=== PATIENT | female | born 1950 | race Caucasian/White ===

== ENCOUNTER 2025-02-04 20:05 | Inpatient (IN) | payer OTHER, SELFPAY ==
[2025-02-04 15:23] VITALS: BP 160/88
[2025-02-04 17:54] VITALS: BP 139/84
[2025-02-04 18:00] VITALS: BP 138/82
--- NOTE | 2025-02-04 18:37 | ED.MUSCINJ ---
HPI-Injury
General
Chief Complaint: Musculo-Skeletal Complaint
Source: patient and spouse
Exam Limitations: none
Time Seen by Provider: 02/04/25 18:04
History of Present Illness-Injury
Is this injury a work related problem?: No
Is pt an associate of [facility]?: No
Initial Injury comments:
74-year-old female left hip pain status post left hip replacement with I believe [facility] orthopedics outpatient center 2 weeks ago, please she fell out of bed this morning she think she hit her right side though she is not certain if she went
to PT PT today got in the car heard a pop could not move her left hip, her surgery was Dr. Sung no head strike she has been taking aspirin 81 mg twice a day
Past History
Past History
ED Past Surgical History: Orthopedic
Social History
Tobacco: Non-smoker
Alcohol: None
Drug: None
Personal:
Living: with family
Employment: Retired
Review of Systems
Review of Systems
All Other Systems: Not applicable
Musculoskeletal: Reports joint pain
Phy Exam
Physical Exam
Physical Exam:
Physical Exam
General: no apparent distress, not acutely ill
Neck: No tongue bite no signs of head or neck
Heart: s1/s2 regular rate and rhythm, no murmur. equal radial pulses.
Lungs: no acute respiratory distress. clear bilaterally
Abdomen: Nontender
Neuro: alert and oriented. no focal neurological deficits
Skin: no rash
Psychiatric: well kept. interactive and cooperative
Extremities: Lower extremities equal length, no pain with range of motion of the right hip exquisite pain with range of motion of the left hip
Injury Course
Orders/Labs/Results
Orders:
Orders
02/04/25 15:26
Hip, Left 2-3 Views [CR Hip - LT w/wo Pel 2-3 Vw*] Urgent
Comment:
Reason For Exam: pain
Include a pelvis x-ray?: Yes
02/04/25 18:47
Type+Screen Urgent
Complete Blood Count/With Diff Urgent
Comprehensive Metabolic Panel Urgent
HYDROmorphone [Dilaudid] 1 mg IV NOW STA
02/04/25 18:48
Cardiac Monitoring- Treatment ONCE
02/04/25 19:13
ORTHOPEDIC CONSULT Routine
Consulting Provider: Buck Sung
Was physician already notified: Yes
MDM/Problems Addressed
Differential Diagnosis Includes:
Fracture dislocation contusion strain
MDM/Problems Addressed:
Left hip pain
*Radiology
Radiology exam reviewed: preliminary read by ED provider
*Pulse Oximetry
SaO2: 100
Oxygen Mode of Delivery: Room air
Patient hypoxic: no
*Critical Care Note
Total Time (30-74mins, 75-104mins- exclusive of procedures): Not Applicable
Update Note
Update Note:
Suspect periprosthetic hip fracture reviewed with her treating surgeon he concurs we will be admitted to the medical service operative repair over the weekend after some special equipment is ordered
ED Attending Note
-
Portions of this chart may have been created with voice recognition software.� Occasional wrong word or��sound alike� substitutions may have occurred due to the inherent limitations of voice recognition software.
Discharge Plan
Departure
Patient Disposition: Admit
Date of Disposition: 02/04/25
Time of Disposition: 19:16
Admit to: Med/Surg
Presentation/result/management discussed w/ accepting MD/DO: Hospitalist
Patient with high blood pressure during this ER visit?: No
Condition: Fair
Discharge Problem:
Kat-prosthetic fracture around prosthetic hip
Interventions
Interventions:
*Risk Screen - Suicide Last Done: 02/04/25 15:23
*General Assessment Last Done: 02/04/25 15:23
*Neglect/Abuse Screening Last Done: 02/04/25 15:23
*ED COVID-19 Vaccine History Last Done: 02/04/25 15:23
ED-Musculoskeletal Assessment Last Done: 02/04/25 17:57
Discharge Date and Time
Print Language: MACANESE
[2025-02-04] MEDS: DILAUDID 1 MG IV (18:58)
--- NOTE | 2025-02-04 19:27 | HPS.HSE ---
Family Physician
-
Family Physician:
Chief Complaint
-
Left hip pain
History of Present Illness
Patient is a 71-year-old female past medical history of hypothyroid and depression who presents to the emergency department following a mechanical fall and injury to the left hip.
Patient is recently status post left total hip arthroplasty 2 weeks ago. She has been doing well on prophylactic aspirin 162 mg daily as well as intermittent doses of Tylenol. She fell from bed in the morning and then went to PT. At PT she had a
cracking sound and developed severe left hip pain. She felt there was some injury day and was brought to the Emergency Department for evaluation. Here in the Emergency Department she was found to have a periprosthetic fracture.
Blood pressure was stable at 138/80 with a pulse of 80 and she is satting 99% on room air. Temperature was 98.7. X-ray shows the left periprosthetic hip fracture. Labs are pending.
Medical History
Past Medical History
Past Medical History: Reports Hypothyroidism and Psychiatric
Past Surgical History: Reports Orthopedic (Left total hip arthroplasty)
Social History
Tobacco: Non-smoker
Alcohol: None
Drug: None
Personal:
Living: With Family
Employment: Retired
Family History
Family History: Not pertinent
Allergies / Home Medications
Allergies reflects when Allergies were last updated in [facility].
Home Medications with original date entered in [facility]
Allergy/Medication List:
Allergies
Allergy/AdvReac Type Severity Reaction Status Date / Time
Penicillins Allergy Unknown Verified 02/04/25 15:26
Home Medications
fluoxetine 10 mg capsule 10 mg PO DAILY 02/04/25
fluoxetine 40 mg capsule 40 mg PO DAILY 02/04/25
levothyroxine 75 mcg tablet (Synthroid) 75 mcg PO DAILY 02/04/25
Review of Systems
-
Constitutional: Reports No Symptoms
EENT: Reports No Symptoms
Respiratory: Reports No Symptoms
Cardiac: Reports No Symptoms
Abdomen/GI: Reports No Symptoms
: Reports No Symptoms
Musculoskeletal: Reports Joint Pain
Skin: Reports No Symptoms
Neurological: Reports No Symptoms
Endocrine: Reports No Symptoms
Hematologic/Lymphatic: Reports No Symptoms
Psych: Reports No Symptoms
Physical Exam
Vital Signs
Vital Signs
Temp Pulse Resp BP Pulse Ox
98.7 F 80 20 138/82 99
02/04/25 15:23 02/04/25 19:15 02/04/25 19:15 02/04/25 18:00 02/04/25 19:15
Physical Exam
General: Well Developed, Well Nourished and No Apparent Distress
HEENT: NormoCephalic, Moist mucous membranes and Atraumatic
Respiratory: Clear
Cardiac: S1/S2 and Regular Rhythm; No Murmur or Rub
GI: Soft, Non Tender, Non Distended and Normal Bowel Sounds; No Organomegaly
Rectal: Deferred by Provider
Musculoskeletal: No Clubbing, No Cyanosis and No Edema
Skin: No Rash
Neuro: Nonfocal/grossly intact
Psych: Calm
Data Reviewed
-
Diagnostic Radiology: Image Personally Visualized and interpreted
Lab Data: Labs Reviewed by me
Impression/Plan
-
IMPRESSION:
Traumatic left total arthroplasty periprosthetic fracture
PLAN:
Hip Fracture
- admit to med/surg
- regular diet for now
- pain control
- no weight bearing for now
- bladder scan fracture protocol
- gentle hydration overnight
- plan for OR on saturday as parts are pending
- Ortho consulted and aware
- no thinners, SCDs
Code status - Full code
[2025-02-04 20:00] VITALS: BP 137/76
[2025-02-04 20:07] LABS: Hematocrit 29.5 % (37.0-47.0); Hemoglobin 10.1 g/dL (12.0-16.0); Mean Corp Hgb Conc. 34.2 g/dL (33.0-37.0); Mean Corpuscular Volume 89.1 fL (81.0-99.0); Nucleated Red Blood Cells % 0 %; Platelet Count 157 10^3/uL (130-400); Red Cell Dist. Width 14.3 % (11.5-14.5)
[2025-02-04 20:17] LABS: ALT (SGPT) 16 U/L (0-35); AST (SGOT) 19 U/L (14-36); Albumin 3.8 g/dl (3.5-5.0); Alkaline Phosphatase 109 U/L (38-126); Blood Urea Nitrogen 19 mg/dl (7-17); Calcium 9.1 mg/dl (8.4-10.2); Carbon Dioxide 23 mmol/L (22-30); Chloride 106 mmol/L (98-107); Glucose 121 mg/dl (70-99); Potassium 4.2 mmol/L (3.5-5.1); Sodium 136 mmol/L (135-145); Total Protein 6.2 g/dl (6.3-8.2); eGFR > 60.00
[2025-02-04] MEDS: D5LR 1000 IV (21:07)
[2025-02-04] MEDS: COLACE 100 MG PO (21:07)
[2025-02-04] MEDS: SENOKOT 17.2 MG PO (21:08)
[2025-02-04] MEDS: TYLENOL 650 MG PO (21:09)
[2025-02-04 21:17] VITALS: BP 134/80; BMI 32.3
--- NOTE | 2025-02-04 22:00 | PTCARENOTE ---
20:30 pt rec'vd from ER, vs stable, denies pain only with movement. static overlay in place, oriented to unit .
[2025-02-04 23:15] VITALS: BP 123/63
[2025-02-05] MEDS: TYLENOL 650 MG PO ×6 (00:31→20:18)
[2025-02-05] MEDS: SYNTHROID 75 MCG PO (05:53)
[2025-02-05] MEDS: DILAUDID 0.25 MG IV ×3 (05:53→18:24)
[2025-02-05 07:50] VITALS: BP 120/90
[2025-02-05] MEDS: PROZAC 40 MG PO (08:45)
[2025-02-05] MEDS: SENOKOT 17.2 MG PO ×2 (08:45→20:18)
[2025-02-05] MEDS: PROZAC 10 MG PO (08:45)
[2025-02-05] MEDS: COLACE 100 MG PO ×2 (08:46→20:18)
--- NOTE | 2025-02-05 09:06 | CON.ORTHO ---
Consultation
-
Date/Time Consultation Requested: 02/04/2025; time unknown
Date/Time Consultation Performed: 02/05/2025; 0700
Requesting Provider: unknown
Performing Provider: Gaby Barnett PA-C
Reason for Consultation: Left periprosthetic femur fracture
Consultation - Orthopedics
History
Ms. Moody is a 74 yo female with PMH of hypothyroid and depression seen today for her left hip. She underwent a left total hip arthroplasty 2 weeks ago under the direction of Dr. Sung. I saw her for her 2 week post-op visit on 02/03 at which
point she was doing quite well. She reports she accidently rolled out of bed yesterday and landed on her right side. She denies any pain immediately following this incident, and was able to get up and move around without difficulty. She attended
physical therapy yesterday without any issues, but when she was getting into her car to go home yesterday, she felt a crack and immediate onset of pain in the hip. She presented to ED where x-rays revealed a displaced periprosthetic femur
fracture. She is resting comfortably in bed this morning, but wells endorse pain with any movement of the left leg. She denies pain elsewhere.
Allergies / Home Medications
Allergy/AdvReac Type Severity Reaction Status Date / Time
Penicillins Allergy Unknown Verified 02/04/25 15:26
�Medication �Instructions �Recorded
fluoxetine 10 mg capsule 10 mg PO DAILY 02/04/25
fluoxetine 40 mg capsule 40 mg PO DAILY 02/04/25
levothyroxine 75 mcg tablet 75 mcg PO DAILY 02/04/25
(Synthroid)
Vital Signs / Lab Results
Temp Pulse Resp BP Pulse Ox
98.2 F 85 18 120/90 100
02/05/25 07:50 02/05/25 07:50 02/05/25 07:50 02/05/25 07:50 02/05/25 07:50
02/04/25 19:52
02/04/25 19:52
XR Left Hip Findings/impression:
There is an oblique cortical fracture along the medial margin of the proximal femur, situated approximately midshaft level of the prosthetic femoral stem.
Also noted is prominent femoral stem subsidence, with downward/distal migration of the femoral component within the femur. Recommend direct comparison to the postoperative images, which are not available at this facility.
Incidental note is made of advanced right hip arthritis.
Directed exam of the left lower extremity reveals healing surgical incision without signs of erythema, drainage or dehiscence. Expected post-operative edema and ecchymosis. Tenderness to palpation about the anterior hip. ROM deferred secondary to
known fracture. Positive log roll. Thigh soft and compressible. Calf soft and nontender. Patient able to wiggle toes, plantar and dorsiflex ankle. Neurovascularly intact distally.
Assessment / Plan
Left periprosthetic femur fracture; 2 weeks s/p left FLASH
--Unfortunately, Pat sustained a left periprosthetic femur fracture. This will require open reduction internal fixation. The risks, benefits, alternatives, recovery process and potential complications were discussed in detail. She verbalized
understanding and would like to proceed with surgical intervention. This will be planned for Wednesday 02/07 under the direction of Dr. Sung. Surgical and blood consent are signed and on patient chart.
--NPO after mn for OR 02/07.
--NWB to LLE until surgery.
--Pain control prn. Ice prn for pain and edema control.
--T+S completed.
--Hgb 10.1 today. Continue to monitor and trend.
--Orthopedics will continue to follow along.
--- NOTE | 2025-02-05 10:03 | CM ---
CM following re: discharge planning.
Reviewed pt's chart , met with pt and pt's at bedside.
Pt is a 74 year old female, admitted with primary dx of Hip fx. per Ortho, OR on 02/07/25.
Pt reports she lives with 2SH, 2 steps to enter, has 3 supportive children. Pt described herself as independent in all areas [employer]. No DME, VN or SNF history.
Pt stated she feels that after surgery she will need to go to a SNF for a short term rehab and she preferred following SNFs: [facility] - number one choice and alternative - [facility]. CM made a referral to above SNFs for a
potential admission early next week.
PT and OT will evaluate the pt after the surgery to determine a level of care at discharge.
PCP: Elvira Santiago
Pharmacy: [facility].
D/C plan: Most likely preferred SNF: [facility] or [facility].
CM will follow with discharge plan updates as hospitalization progresses
--- NOTE | 2025-02-05 10:55 | W.PN.HOSP.TC ---
Today's Communication/Plan
-
Pain control. Orthopedic consult
Assessment / Plan
Assessment / Plan
Physical exam:
General: Discomfort due to pain in hip
HEENT: Normocephalic, Atraumatic and Moist Mucous Membranes
Respiratory: Clear to Auscultation; Negative Wheezes, Rales or Rhonchi
Cardiac: Regular Rhythm and S1/S2
GI: Soft, Nontender and Nondistended
Musculoskeletal: Left hip postop findings with mild edema and ecchymosis and tenderness, no erythema. No Clubbing, No Cyanosis and No Edema
Neuro: Awake, Alert and Oriented
Psych: Calm
A/P:
Left periprosthetic femur fracture:
Patient with recent FLASH 2 weeks ago
Pain control and bowel regimen
Orthopedic consult appreciated-plan for ORIF on 02/07
No weightbearing until surgery
Obtain twelve-lead EKG preop
Discussed with family at bedside today
Anemia:
Continue to monitor hemoglobin closely
Hemoglobin 10.1 today
Leukocytosis:
Likely reactive
Monitor trend
Hypothyroidism:
Continue levothyroxine 75 mg p.o. daily
Depression:
Continue fluoxetine 50 mg daily
DVT prophylaxis:
SCDs
CODE STATUS:
Full code
Time spent 35 minutes
Anticipated Discharge: > 48 hours
Subjective/Interval History
-
Date of Service: February 05, 2025
Patient has pain in her left hip when moving. No chest pain or shortness of breath.
Objective Data
-
Vital Signs:
Vital Signs
Temp Pulse Resp BP Pulse Ox
98.2 F 85 18 120/90 100
02/05/25 07:50 02/05/25 07:50 02/05/25 07:50 02/05/25 07:50 02/05/25 07:50
I&O
02/04/25 02/05/25 02/06/25
06:59 06:59 06:59
Intake Total 1360 / 1360
Balance 1360 / 1360
[2025-02-05 11:30] VITALS: BP 93/40
[2025-02-05 23:16] VITALS: BP 121/77
[2025-02-06] MEDS: TYLENOL PO (01:04)
[2025-02-06] MEDS: TYLENOL 650 MG PO ×6 (05:19→23:41)
[2025-02-06] MEDS: SYNTHROID 75 MCG PO (05:19)
[2025-02-06 06:46] LABS: Hematocrit 30.3 % (37.0-47.0); Hemoglobin 10.0 g/dL (12.0-16.0); Mean Corp Hgb Conc. 33.0 g/dL (33.0-37.0); Mean Corpuscular Volume 91.8 fL (81.0-99.0); Platelet Count 165 10^3/uL (130-400); Red Cell Dist. Width 14.6 % (11.5-14.5); Reticulocyte Count 3.0 % (0.4-2.8)
[2025-02-06 06:49] LABS: ALT (SGPT) 12 U/L (0-35); AST (SGOT) 15 U/L (14-36); Albumin 3.4 g/dl (3.5-5.0); Alkaline Phosphatase 102 U/L (38-126); Blood Urea Nitrogen 13 mg/dl (7-17); Calcium 8.5 mg/dl (8.4-10.2); Carbon Dioxide 29 mmol/L (22-30); Chloride 105 mmol/L (98-107); Estimated Creatinine Clearance 74 ml/min; Glucose 92 mg/dl (70-99); Iron 32 ug/dl (37-170); Potassium 3.8 mmol/L (3.5-5.1); Sodium 140 mmol/L (135-145); Total Protein 5.8 g/dl (6.3-8.2); eGFR > 60.00
[2025-02-06 06:59] LABS: Total Iron Binding Capacity 238 ug/dl (265-497)
[2025-02-06 07:15] VITALS: BP 123/84
[2025-02-06 07:19] LABS: Ferritin 115.0 ng/ml (11.1-264.0)
[2025-02-06 07:50] LABS: Folate 8.5 ng/ml (2.76-20); Vitamin B12 395 pg/ml (239-931)
[2025-02-06] MEDS: SENOKOT 17.2 MG PO ×2 (08:19→20:11)
[2025-02-06] MEDS: PROZAC 10 MG PO (08:19)
[2025-02-06] MEDS: COLACE 100 MG PO ×2 (08:19→20:10)
[2025-02-06] MEDS: PROZAC 40 MG PO (08:20)
--- NOTE | 2025-02-06 08:33 | W.PN.UPDATE ---
Update Note
Progress Note Update
Tierra is resting comfortably in bed this morning. She reports minimal pain at rest, but does endorse pain about her hip with any movement. She is scheduled for ORIF left periprosthetic femur fracture tomorrow under the direction of Dr. Sung.
Directed exam reveals tenderness about the hip. Thigh soft and compressible. Calf soft and nontender. NVID.
Hgb 10.0 this AM. Continue to monitor.
NPO after mn for OR 02/07/2025.
NWB to LLE.
Pain control prn.
Abx and irrigation ordered to OR.
Orthopedics will continue to follow along.
--- NOTE | 2025-02-06 11:47 | W.PN.HOSP.TC ---
Today's Communication/Plan
-
Plan for hip surgery tomorrow
Assessment / Plan
Assessment / Plan
Physical exam:
General: No acute distress
HEENT: Normocephalic, Atraumatic and Moist Mucous Membranes
Respiratory: Clear to Auscultation; Negative Wheezes, Rales or Rhonchi
Cardiac: Regular Rhythm and S1/S2
GI: Soft, Nontender and Nondistended
Musculoskeletal: Left hip postop findings with mild edema and ecchymosis and tenderness, no erythema. No Clubbing, No Cyanosis
Neuro: Awake, Alert and Oriented, no neurological deficit
Psych: Calm
A/P:
Left periprosthetic femur fracture:
Patient with recent FLASH 2 weeks ago
Pain control and bowel regimen
Orthopedic consult appreciated-plan for ORIF on 02/07
No weightbearing until surgery
Reviewed twelve-lead EKG preop and normal sinus rhythm with nonspecific ST-T changes abnormalities. Okay for surgery from medical standpoint.
Discussed with family at bedside today
Anemia:
Workup for anemia reviewed and some evidence of anemia of chronic disease-can continue to follow-up as outpatient.
Continue to monitor hemoglobin
Hemoglobin 10 today
Leukocytosis:
Reactive
Back to normal today
Hypothyroidism:
Continue levothyroxine 75 mg p.o. daily
Depression:
Continue fluoxetine 50 mg daily
DVT prophylaxis:
SCDs
CODE STATUS:
Full code
Time spent 35 minutes
Anticipated Discharge: > 48 hours
Subjective/Interval History
-
Date of Service: February 06, 2025
Patient denies much pain especially at rest. No chest pain or shortness of breath.
Objective Data
-
Labs:
Laboratory Results
02/06/25
05:08
WBC 8.8
Hgb 10.0 L
Hct 30.3 L
Plt Count 165
Sodium 140
Potassium 3.8
Chloride 105
Carbon Dioxide 29
BUN 13
Creatinine 0.8
Glucose 92
Calcium 8.5
Total Bilirubin 0.5
AST 15
ALT 12
Alkaline Phosphatase 102
Vital Signs:
Vital Signs
Temp Pulse Resp BP Pulse Ox
98.7 F 90 16 123/84 96
02/06/25 07:15 02/06/25 07:15 02/06/25 07:15 02/06/25 07:15 02/06/25 07:15
I&O
02/05/25 02/06/25 02/07/25
06:59 06:59 06:59
Intake Total 1360 / 1360 240 / 240 240 / 240
Balance 1360 / 1360 240 / 240 240 / 240
[2025-02-06 15:00] VITALS: BP 119/63
[2025-02-06 23:47] VITALS: BP 121/77
[2025-02-07] VITALS (11 sets, daily range): BP systolic 102–124; BP diastolic 63–79; PULSE 110–147; O2SAT 95
[2025-02-07 04:48] LABS: Hematocrit 29.4 % (37.0-47.0); Hemoglobin 9.8 g/dL (12.0-16.0)
[2025-02-07] MEDS: TYLENOL 650 MG PO ×5 (05:38→19:46)
[2025-02-07] MEDS: SYNTHROID 75 MCG PO (05:39)
--- NOTE | 2025-02-07 08:31 | W.PN.HOSP.TC ---
Today's Communication/Plan
-
ORIF today. PT OT eval
Assessment / Plan
Assessment / Plan
Physical exam:
General: No acute distress
HEENT: Normocephalic, Atraumatic and Moist Mucous Membranes
Respiratory: Clear to Auscultation; Negative Wheezes, Rales or Rhonchi
Cardiac: Regular Rhythm and S1/S2
GI: Soft, Nontender and Nondistended
Musculoskeletal: Left hip postop findings. No Clubbing, No Cyanosis
Neuro: Awake, Alert and Oriented, no neurological deficit
Psych: Calm
A/P:
Left periprosthetic femur fracture:
Patient with recent FLASH 2 weeks ago
Pain control and bowel regimen
Orthopedic consult appreciated-status post ORIF today on 02/07.
Plan for PT OT eval postop
Reviewed twelve-lead EKG preop and normal sinus rhythm with nonspecific ST-T changes abnormalities. Okay for surgery from medical standpoint.
Discussed with family at bedside earlier today
Anemia:
Workup for anemia reviewed and some evidence of anemia of chronic disease. At risk of blood loss anemia postop, so continue to monitor.
Continue to monitor hemoglobin
Hemoglobin 9.8 today
Leukocytosis:
Reactive
Back to normal yesterday
Hypothyroidism:
Continue levothyroxine 75 mg p.o. daily
Depression:
Continue fluoxetine 50 mg daily
DVT prophylaxis:
SCDs
CODE STATUS:
Full code
Time spent 35 minutes
Anticipated Discharge: 24 - 48 hours
Subjective/Interval History
-
Date of Service: February 07, 2025
Patient seen postop. Complains of mild postop discomfort. No chest pain or shortness of breath. Alert and oriented.
Objective Data
-
Labs:
Laboratory Results
02/07/25
04:04
Hgb 9.8 L
Hct 29.4 L
Vital Signs:
Vital Signs
Temp Pulse Resp BP Pulse Ox
99.0 F 83 15 106/72 92
02/07/25 07:00 02/07/25 07:00 02/07/25 07:00 02/07/25 07:00 02/07/25 07:00
I&O
02/06/25 02/07/25 02/08/25
06:59 06:59 06:59
Intake Total 240 / 240 576 / 576
Output Total 400 / 400
Balance 240 / 240 176 / 176
--- NOTE | 2025-02-07 12:15 | PTCARENOTE ---
Patient rec'd from PACU @ 1040. Assessment and neurovascular checks as documented. Surgical dressing noted to left hip, small amount of old drainage as marked by CLOTH HAULER. No change noted. VSS. Patient awake and alert, at bedside, both
updated to post op plan of care. Patient denies pain, tolerating sips of water. Call lewis within reach, bed in lowest position Care ongoing.
[2025-02-07] MEDS: ROXICODONE 5 MG PO (13:11)
[2025-02-07] MEDS: PROZAC 40 MG PO (13:53)
[2025-02-07] MEDS: PROZAC 10 MG PO (13:53)
[2025-02-07] MEDS: COLACE 100 MG PO ×2 (13:53→19:46)
[2025-02-07] MEDS: SENOKOT PO ×3 (13:54→19:51)
[2025-02-07] MEDS: KEFLEX 500 MG PO ×3 (13:59→22:23)
[2025-02-07] MEDS: ASPIRIN 325 MG PO (17:45)
[2025-02-07] MEDS: ROXICODONE 10 MG PO (19:45)
[2025-02-07] MEDS: BACTROBAN 2% OINTMENT 1 APPLIC NASAL (19:46)
[2025-02-08] VITALS (7 sets, daily range): BP systolic 102–127; BP diastolic 64–79; PULSE 107–119; O2SAT 96–99
[2025-02-08] MEDS: TYLENOL PO ×2 (01:00→11:44)
[2025-02-08] MEDS: TYLENOL 650 MG PO ×4 (03:01→19:28)
[2025-02-08] MEDS: SYNTHROID 75 MCG PO (06:19)
[2025-02-08] MEDS: ROXICODONE 10 MG PO (06:20)
[2025-02-08 06:28] LABS: Hematocrit 26.1 % (37.0-47.0); Hemoglobin 9.1 g/dL (12.0-16.0); Mean Corp Hgb Conc. 34.9 g/dL (33.0-37.0); Mean Corpuscular Volume 87.9 fL (81.0-99.0); Platelet Count 178 10^3/uL (130-400); Red Cell Dist. Width 14.1 % (11.5-14.5)
[2025-02-08 06:48] LABS: Blood Urea Nitrogen 24 mg/dl (7-17); Calcium 8.7 mg/dl (8.4-10.2); Carbon Dioxide 23 mmol/L (22-30); Chloride 102 mmol/L (98-107); Estimated Creatinine Clearance 65 ml/min; Glucose 111 mg/dl (70-99); Potassium 4.5 mmol/L (3.5-5.1); Sodium 133 mmol/L (135-145); eGFR > 60.00
--- NOTE | 2025-02-08 08:16 | W.PN.HOSP.TC ---
Today's Communication/Plan
-
Possible discharge tomorrow to rehab.
Assessment / Plan
Assessment / Plan
Impression:
71-year-old female past medical history of hypothyroid and depression who presents to the emergency department following a mechanical fall and injury to the left hip.
Patient admitted under hospitalist service, status post ORIF 02/08.
Seen by physical therapy recommended rehab.
Assessment/ Plan:
Left periprosthetic femur fracture:
Patient with recent FLASH 2 weeks ago
Pain control and bowel regimen
Orthopedic consult appreciated-status post ORIF 02/08
Physical therapy recommending rehab
Acute on chronic anemia:
Workup for anemia reviewed and some evidence of anemia of chronic disease. At risk of blood loss anemia postop, so continue to monitor.
Continue to monitor hemoglobin
Hemoglobin stable
Leukocytosis:
Reactive
Continue to monitor
Mild hyponatremia.
Monitor BMP
Hypothyroidism:
Continue levothyroxine 75 mg p.o. daily
Depression:
Continue fluoxetine 50 mg daily
CODE STATUS: Full code
DVT prophylaxis: As per
Diet: Regular diet
Family communication: Discussed with at bedside.
Disposition: Possible discharge tomorrow to rehab.
Total time spent on today's encounter was 55 minutes which included time spent in counseling the patient/family regarding diagnosis and treatment plan as listed above, goals of care, and symptom management. Case was discussed with nursing staff,
specialists, and care coordinators/case management. All labs and imaging personally reviewed by me. Remainder the time spent in detailed review of previous records, lab data, imaging, and other medical provider documentation.
Anticipated Discharge: Within 24 hours
Subjective/Interval History
-
Date of Service: February 08, 2025
Patient seen and examined at bedside, at bedside, denies any chest pain or shortness of breath, complaining of surgical hip pain, also nausea and vomiting.
Objective Data
-
Labs:
Laboratory Results
02/08/25
06:07
WBC 14.4 H
Hgb 9.1 L
Hct 26.1 L
Plt Count 178
Sodium 133 L
Potassium 4.5
Chloride 102
Carbon Dioxide 23
BUN 24 H
Creatinine 0.9
Glucose 111 H
Calcium 8.7
Vital Signs:
Vital Signs
Temp Pulse Resp BP Pulse Ox
98.2 F 120 16 102/71 96
02/08/25 07:10 02/08/25 07:10 02/08/25 07:10 02/08/25 07:10 02/08/25 07:10
I&O
02/07/25 02/08/25 02/09/25
06:59 06:59 06:59
Intake Total 576 / 576 2840 / 2840
Output Total 400 / 400
Balance 176 / 176 2840 / 2840
Physical Exam
-
General: Well Developed, Well Nourished, No Apparent Distress and Comfortable
HEENT: Normocephalic, Atraumatic, Moist Mucous Membranes, No Ptosis, PERRLA and Nose Appears Normal
Respiratory: Clear to Auscultation and Non Labored Respirations
Cardiac: Regular Rhythm and S1/S2
Breast: Deferred by me
GI: Soft, Nontender, Nondistended and Normal Bowel Sounds
Genito-urinary: No Costovertebral Tender
Musculoskeletal: No Clubbing, No Cyanosis, No Edema and Other (Left hip pain, surgical site clean)
Skin: Warm
Neuro: Awake, Alert, Oriented, AO x 3 and No Motor Deficits
Psych: Calm
Data Reviewed
-
Diagnostic Radiology: Image personally visualized and interpreted and Report Reviewed by me
CT Scan: Image personally visualized and interpreted and Report Reviewed by me
Ultrasound: Image personally visualized and interpreted and Report Reviewed by me
MRI: Image personally visualized and interpreted and Report Reviewed by me
Medical Tests (Nuc Med, Echo etc): Image personally visualized and interpreted and Report Reviewed by me
Labs: Labs Reviewed by me
Old Records: Reviewed
[2025-02-08] MEDS: ZOFRAN 4 MG IV (08:31)
[2025-02-08] MEDS: BACTROBAN 2% OINTMENT 1 APPLIC NASAL ×2 (09:00→21:05)
--- NOTE | 2025-02-08 09:45 | PTCARENOTE ---
Entered room @ 0815, pt had ate breakfast and immediately became nauseous and started to vomit. IV zofran given @ 08. Last emesis @ 929. Care ongoing.
--- NOTE | 2025-02-08 09:49 | W.PN.ORTHO ---
Today's Communication / Plan
-
Appreciate the primary team, continue treatment
Dispo plan per CM- appreciate their efforts
Continue WBAT LLE on walker/assistance
PT/OT, THPs
ASA 325mg daily x 4 weeks for DVT ppx
Pain control/ice to hip
Dressing to remain 7-10 days
Outpatient orthopedic follow-up 2 weeks
Will follow
Assessment
.
Distal Motor Intact: Yes
Dressing:
Clean, dry and intact. Mild strikethrough, contained
Assessment:
POD#1 ORIF left periprosthetic femur fracture
Overall doing, feeling reasonably well
Plan
.
Surgery / Date: ORIF left peripros. femur fracture Mar 01 ([facility])
DVT Prophylaxis: Aspirin
Activity:
Out of bed. WBAT LLE on walker/assistance
PT/OT, THPs
Discharge Plan: Other (Appreciate CM)
Subjective
.
.:
Patient seated bedside enjoying breakfast. Moderate amount of left thigh pain, however just took a pain pill.
Vital Signs and Labs
.
Vital Signs and Labs:
Lab Results
02/08/25 06:07
02/08/25 06:07
Temp Pulse Resp BP Pulse Ox
98.2 F 120 16 102/71 96
02/08/25 07:10 02/08/25 07:10 02/08/25 07:10 02/08/25 07:10 02/08/25 07:10
Non-invasive Hgb result: 12.9
[2025-02-08] MEDS: PROZAC 10 MG PO (11:25)
[2025-02-08] MEDS: CELEBREX 200 MG PO (11:26)
[2025-02-08] MEDS: PROZAC 40 MG PO (11:27)
--- NOTE | 2025-02-08 11:27 | CM ---
Patient seen at bedside with and physician on . Patient indicated that she would like first choice for SNF to be [facility]. Updated referrals sent via all scripts. Awaiting responses for available bed and will need to start auth when
confirmed. CM will continue to follow for discharge planning needs.
Plan; SNF; [facility]/ [facility] pending auth and available bed
[2025-02-08] MEDS: ASPIRIN 325 MG PO (11:28)
[2025-02-08] MEDS: COLACE 100 MG PO ×2 (11:29→19:28)
[2025-02-08] MEDS: KEFLEX 500 MG PO ×4 (11:30→21:05)
[2025-02-08] MEDS: DILAUDID 0.25 MG IV (11:42)
[2025-02-08] MEDS: SENOKOT PO ×2 (11:45→19:28)
[2025-02-08] MEDS: ROXICODONE 5 MG PO ×2 (15:01→19:27)
[2025-02-09] MEDS: TYLENOL PO ×2 (00:37→05:00)
[2025-02-09 03:00] VITALS: BP 113/68
[2025-02-09] MEDS: SYNTHROID 75 MCG PO (06:28)
--- NOTE | 2025-02-09 06:35 | W.PN.ORTHO ---
Today's Communication / Plan
-
74-year-old female POD #2 ORIF left intertrochanteric hip fracture with revision of total hip arthroplasty, femoral and acetabular components performed on 02/07/2025 under the direction of Dr. Sung.
- Appreciate the primary team, continue treatment.
- Dispo plan per CM- appreciate their efforts.
- Continue WBAT LLE on walker/assistance.
- PT/OT, THPs.
- ASA 325mg daily x 4 weeks for DVT ppx.
- Pain control/ice to hip.
- Dressing to remain 7-10 days.
- Outpatient Orthopedic follow-up 2 weeks. D/C information updated.
- Orthopedic surgery will sign-off at this time. Please reengage with any further questions or concerns.
Assessment
.
Distal Motor Intact: Yes
Dressing:
Clean, dry and intact. Mild strikethrough, contained.
Calf is soft and nontender to palpation.
Able to plantarflex and dorsiflex left ankle.
NVI distally.
Assessment:
POD#2 ORIF left periprosthetic femur fracture ORIF with revision FLASH 02/07/[address] Sung.
Plan
.
Surgery / Date: ORIF left peripros. femur fracture 3 Mar 01 (THV)
DVT Prophylaxis: Aspirin
Activity:
Out of bed. WBAT LLE on walker/assistance
PT/OT, THPs
Discharge Information:
Appreciate CM.
Subjective
.
.:
Patient resting comfortably.
Vital Signs and Labs
.
Vital Signs and Labs:
Temp Pulse Resp BP Pulse Ox
97.8 F 96 16 113/68 99
02/09/25 03:00 02/09/25 03:00 02/09/25 03:00 02/09/25 03:00 02/09/25 03:00
Non-invasive Hgb result: 12.9
[2025-02-09 07:11] LABS: Hematocrit 24.2 % (37.0-47.0); Hemoglobin 8.0 g/dL (12.0-16.0); Mean Corp Hgb Conc. 33.1 g/dL (33.0-37.0); Mean Corpuscular Volume 89.6 fL (81.0-99.0); Platelet Count 231 10^3/uL (130-400); Red Cell Dist. Width 14.3 % (11.5-14.5)
[2025-02-09 07:14] LABS: Blood Urea Nitrogen 31 mg/dl (7-17); Calcium 8.4 mg/dl (8.4-10.2); Carbon Dioxide 26 mmol/L (22-30); Chloride 100 mmol/L (98-107); Estimated Creatinine Clearance 53 ml/min; Glucose 102 mg/dl (70-99); Potassium 4.2 mmol/L (3.5-5.1); Sodium 133 mmol/L (135-145); eGFR 53.06
[2025-02-09 07:15] VITALS: BP 113/65
[2025-02-09] MEDS: PROZAC 40 MG PO (08:05)
[2025-02-09] MEDS: KEFLEX 500 MG PO ×2 (08:05→12:36)
[2025-02-09] MEDS: PROZAC 10 MG PO (08:05)
[2025-02-09] MEDS: CELEBREX 200 MG PO (08:05)
[2025-02-09] MEDS: ASPIRIN 325 MG PO (08:06)
[2025-02-09] MEDS: SENOKOT PO (08:06)
[2025-02-09] MEDS: COLACE 100 MG PO (08:06)
[2025-02-09] MEDS: TYLENOL 650 MG PO ×2 (08:06→12:36)
[2025-02-09 10:27] LABS: Urine Character Clear (Clear)
[2025-02-09 10:43] LABS: Urine Squamous Cell 26-30 /LPF (Few)
[2025-02-09 10:44] LABS: Urine Red Blood Cell 0-2 /HPF (0-2)
--- NOTE | 2025-02-09 11:10 | CM ---
CM following re: discharge planning.
Reviewed pt's chart, met with pt and pt's spouse at bedside.
Updated PT and OT evaluations noted - outpatient PT/OT recommended. Pt is aware, expressed her agreement and pt stated she will resume outpatient PT/OT and [facility] out[patient therapy in [place].
Please provide a script for outpatient PT/OT.
According to MD, pt is medically stable to be discharged today. Pt is aware, expressed her agreement and she stated her will transport home. IMM reviewed, placed on chart, pt has a copy.
D/C plan: home with outpatient PT/OT at [facility] in [place] and family support. to transport.
--- NOTE | 2025-02-09 11:10 | W.PN.HOSP.TC ---
Today's Communication/Plan
-
repeat CBC
dc home with home PT.
Assessment / Plan
Assessment / Plan
Impression:
71-year-old female past medical history of hypothyroid and depression who presents to the emergency department following a mechanical fall and injury to the left hip.
Patient admitted under hospitalist service, status post ORIF 02/08.
Seen by physical therapy recommended rehab.
Hemoglobin dropped after surgery, elevated WBCs, possible reactive.
Urinalysis shows evidence of UTI and patient already on Keflex.
Will be discharged for additional 5-days.
Assessment/ Plan:
Left periprosthetic femur fracture:
Patient with recent FLASH 2 weeks ago
Pain control and bowel regimen
Orthopedic consult appreciated-status post ORIF 02/08
Physical therapy recommending Home PT.
Acute on chronic anemia:
Workup for anemia reviewed and some evidence of anemia of chronic disease. At risk of blood loss anemia postop, so continue to monitor.
Continue to monitor hemoglobin
Hemoglobin stable
Leukocytosis:
Reactive
UA shows UTI
started on Keflex.
Mild hyponatremia.
Monitor BMP
Hypothyroidism:
Continue levothyroxine 75 mg p.o. daily
Depression:
Continue fluoxetine 50 mg daily
CODE STATUS: Full code
DVT prophylaxis: As per
Diet: Regular diet
Family communication: Discussed with at bedside.
Disposition: dc home with home PT.
Total time spent on today's encounter was 55 minutes which included time spent in counseling the patient/family regarding diagnosis and treatment plan as listed above, goals of care, and symptom management. Case was discussed with nursing staff,
specialists, and care coordinators/case management. All labs and imaging personally reviewed by me. Remainder the time spent in detailed review of previous records, lab data, imaging, and other medical provider documentation.
Anticipated Discharge: Today
Subjective/Interval History
-
Date of Service: February 09, 2025
Patient seen and examined at bedside, denies any chest pain or shortness of breath, no abdominal pain, no nausea, no vomiting, no diarrhea or constipation.
Objective Data
-
Labs:
Laboratory Results
02/09/25 02/09/25
05:39 11:06
WBC 15.0 H Pending
Hgb 8.0 L Pending
Hct 24.2 L Pending
Plt Count 231 D Pending
Sodium 133 L
Potassium 4.2
Chloride 100
Carbon Dioxide 26
BUN 31 H
Creatinine 1.1 H
Glucose 102 H
Calcium 8.4
Vital Signs:
Vital Signs
Temp Pulse Resp BP Pulse Ox
98.4 F 96 14 113/65 96
02/09/25 07:15 02/09/25 07:15 02/09/25 07:15 02/09/25 07:15 02/09/25 07:15
I&O
02/08/25 02/09/25 02/10/25
06:59 06:59 06:59
Intake Total 2840 / 2840 720 / 720
Output Total 50 / 50
Balance 2840 / 2840 720 / 720 -50 / -50
Physical Exam
-
General: Well Developed, Well Nourished, No Apparent Distress and Comfortable
HEENT: Normocephalic, Atraumatic, Moist Mucous Membranes, No Ptosis, PERRLA and Nose Appears Normal
Respiratory: Clear to Auscultation and Non Labored Respirations
Cardiac: Regular Rhythm and S1/S2
Breast: Deferred by me
GI: Soft, Nontender, Nondistended and Normal Bowel Sounds
Genito-urinary: No Costovertebral Tender
Musculoskeletal: No Clubbing, No Cyanosis, No Edema and Other (Left hip pain, surgical site clean)
Skin: Warm
Neuro: Awake, Alert, Oriented, AO x 3 and No Motor Deficits
Psych: Calm
Data Reviewed
-
Diagnostic Radiology: Image personally visualized and interpreted and Report Reviewed by me
CT Scan: Image personally visualized and interpreted and Report Reviewed by me
Ultrasound: Image personally visualized and interpreted and Report Reviewed by me
MRI: Image personally visualized and interpreted and Report Reviewed by me
Medical Tests (Nuc Med, Echo etc): Image personally visualized and interpreted and Report Reviewed by me
Labs: Labs Reviewed by me
Old Records: Reviewed
[2025-02-09 11:26] VITALS: BP 100/62; PULSE 99; O2SAT 97
[2025-02-09 12:09] LABS: Hematocrit 23.6 % (37.0-47.0); Hemoglobin 8.1 g/dL (12.0-16.0); Mean Corp Hgb Conc. 34.3 g/dL (33.0-37.0); Mean Corpuscular Volume 87.7 fL (81.0-99.0); Platelet Count 261 10^3/uL (130-400); Red Cell Dist. Width 14.4 % (11.5-14.5)
--- NOTE | 2025-02-09 12:35 | W.DCSUMMARY ---
Addendum entered and electronically signed by Fuad Lakhani MD 02/10/25 08:05:
Acute blood loss anemia is a valid diagnosis
Original Note:
Discharge Summary
Discharge Data
Date of Admission: 02/04/25
Date of Discharge: 02/09/25
Total time spent discharging patient (in min): 40
-
Pending Results: No
Hospital Course
Hospital course
71-year-old female past medical history of hypothyroid and depression who presents to the emergency department following a mechanical fall and injury to the left hip.
Patient admitted under hospitalist service, status post ORIF 02/08.
Seen by physical therapy recommended rehab.
Hemoglobin dropped after surgery, elevated WBCs, possible reactive.
Urinalysis shows evidence of UTI and patient already on Keflex.
Will be discharged for additional 5-days.
During hospitalization patient was treated from the following
Left periprosthetic femur fracture:
Patient with recent FLASH 2 weeks ago
Pain control and bowel regimen
Orthopedic consult appreciated-status post ORIF 02/08
Physical therapy recommending Home PT.
Acute on chronic anemia:
Workup for anemia reviewed and some evidence of anemia of chronic disease. At risk of blood loss anemia postop, so continue to monitor.
Continue to monitor hemoglobin
Hemoglobin stable
Leukocytosis:
Reactive
UA shows UTI
started on Keflex.
Mild hyponatremia.
Monitor BMP
Hypothyroidism:
Continue levothyroxine 75 mg p.o. daily
Depression:
Continue fluoxetine 50 mg daily
CODE STATUS: Full code
DVT prophylaxis: As per
Diet: Regular diet
Family communication: Discussed with at bedside.
Disposition: dc home with home PT.
Total time spent on today's encounter was 40 minutes which included time spent in counseling the patient/family regarding diagnosis and treatment plan as listed above, goals of care, and symptom management. Case was discussed with nursing staff,
specialists, and care coordinators/case management. All labs and imaging personally reviewed by me. Remainder the time spent in detailed review of previous records, lab data, imaging, and other medical provider documentation.
Anticipated Discharge: Today
Discharge Plan
-
Patient Disposition: Home with Home Care
Discharge Diagnosis/Procedures: Left periprosthetic femur fracture
Acute on chronic anemia
Diet: As tolerated and Regular
Activity: With assistance and As tolerated
Referrals:
Elvira Santiago DO [Family Provider, [facility]]
Buck Sung MD [Active, Orthopedics] - in two weeks
Prescriptions:
New
aspirin 325 mg Tablet
325 mg PO DAILY Qty: 30 0RF
celecoxib 200 mg Capsule
200 mg PO DAILY Qty: 14 0RF
acetaminophen 325 mg Tablet
650 mg PO Q6HPRN PRN (Reason: mild pain) Qty: 30 0RF
cephalexin 500 mg Capsule
500 mg PO QID 5 Days Qty: 20 0RF
oxycodone 5 mg Tablet
5 mg PO Q6HPRN PRN (Reason: sever pain) 5 Days Qty: 20 0RF
(DME) CBC (Complete blood count)
See Rx Instructions .Route .MEDSUPPLY Qty: 1 0RF
Rx Instructions:
To be done after one week, fax result to PCP
Continued
fluoxetine 40 mg Capsule
40 mg PO DAILY
levothyroxine [Synthroid] 75 mcg Tablet
75 mcg PO DAILY
fluoxetine 10 mg Capsule
10 mg PO DAILY
Discharge Orders:
Discharge Patient (As Directed); Ordered 02/09/25
Ordered By: Fuad Lakhani
Discharge Date and Time
Print Language: CITIZEN OF [place]
[2025-02-09 13:27] VITALS: BP 117/82
--- NOTE | 2025-02-09 14:00 | PN.CDI ---
CDI
- -
CDI:
Physician Documentation Request
Admit Date: 02/04/25 20:05
Dear Doctor Lesvia,
Clinical Indicators:
Patient admitted with Left periprosthetic femur fracture; s/p ORIF 02/08.
02/07 Anesthesia report, EBL: 300 ml
02/09 PN, 'Acute on chronic anemia:Workup for anemia reviewed and some evidence of anemia of chronic disease. At risk of blood loss anemia postop, so continue to monitor.'
Hgb/Hct trend:
02/04/25 02/09/25 02/09/25
19:52 05:39 11:36
Hgb 10.1 L 8.0 L 8.1 L
Hct 29.5 L 24.2 L 23.6 L
Please clarify the following:
Acute blood loss anemia is a valid diagnosis
Acute blood loss anemia was ruled out
Other, please specify
Use of terms such as suspected, likely, concern for, or probable (associated with a specific diagnosis that is being evaluated, monitored, or treated as if it exists) are acceptable and can be coded in the inpatient setting, when documented at the
time of discharge.
Thank you,
BENEDICT Batista RN
CDI Specialist
available via tiger text
Please use your independent medical judgment in providing your response.
== END 2025-02-09 13:45 | disposition home or self-care (01) | DRG 467 ==
LOC: 2 SOUTH 20:05
PROVIDERS: Hospitalist; ADMITTING PHYSICIAN Internal Medicine; ATTENDING PHYSICIAN General Practice; CONSULT PHYSICIAN Orthopaedic Surgery; EMERGENCY PHYSICIAN Emergency Medicine; FAMILY PHYSICIAN Family Medicine
PROC: 0SPB0JZ Removal of Synthetic Substitute from Left Hip Joint, Open Approach (ICD-10-PCS; 2025-02-07)
PROC: 0QS704Z Reposition Left Upper Femur with Internal Fixation Device, Open Approach (ICD-10-PCS; 2025-02-07)
PROC: 0SRB04A Replacement of Left Hip Joint with Ceramic on Polyethylene Synthetic Substitute, Uncemented, Open Approach (ICD-10-PCS; 2025-02-07)
DX: S72.142A Displaced intertrochanteric fracture of left femur, initial encounter for closed fracture (principal); D62 Acute posthemorrhagic anemia; M97.02XA Periprosthetic fracture around internal prosthetic left hip joint, initial encounter; N39.0 Urinary tract infection, site not specified; E87.1 Hypo-osmolality and hyponatremia; E03.9 Hypothyroidism, unspecified; F32.A Depression, unspecified; W06.XXXA Fall from bed, initial encounter; D63.8 Anemia in other chronic diseases classified elsewhere
CPT/HCPCS: 73502; 80048; 80053; 81003; 81015; 82248; 82607; 82728; 82746; 83540; 83550; 85014; 85018; 85025; 85027; 85045; 86850; 86900; 86901; 87086; 93005; 96374; 97162; 97166; 97530; 97535; 99285; C1713; C1776